=== PATIENT | male | born 1945 | race Caucasian/White ===

== ENCOUNTER → 2017-10-18 | Outpatient (CLI) | payer OTHER, BC | DX: I25.10 Atherosclerotic heart disease of native coronary artery without angina pectoris (principal); I10 Essential (primary) hypertension; E78.5 Hyperlipidemia, unspecified ==

== ENCOUNTER → 2018-05-31 | Outpatient (CLI) | payer OTHER, BC | LOC: BMCIMAGING 11:55 | PROVIDERS: ATTEND Family Medicine | DX: J98.4 Other disorders of lung (principal) ==

== ENCOUNTER → 2018-06-20 | Outpatient (CLI) | payer OTHER, BC | LOC: BMCIMAGING 10:42 | PROVIDERS: ATTEND Internal Medicine | DX: R05 Cough (principal); R63.4 Abnormal weight loss; R53.83 Other fatigue | CPT/HCPCS: G0103 ==

== ENCOUNTER 2018-08-02 14:17 | Observation (INO) | payer OTHER, BC ==
[2018-08-02] MEDS ORDERED: IPRATROPIUM/ALBUTEROL 3 ML DEYVIAL IH ONE (15:14)
[2018-08-02] MEDS ORDERED: ALBUTEROL 3 ML DEYVIAL IH ONE (15:14)
[2018-08-02] MEDS ORDERED: methylPREDNISolone SOD SUCC 125 MG/2 ML VIAL IVP ONE (15:14)
--- NOTE | 2018-08-02 15:15 | EDPHY ---
H & P Time Seen by Provider: 08/02/18 14:54 HPI/ROS: CHIEF COMPLAINT: Persistent cough and shortness of breath HISTORY OF PRESENT ILLNESS: Patient started having symptoms in early May. He was seen in his primary care doctor's office on June 03 and given a course of azithromycin. He was seen again on June 05 and given a steroid and per the notes some injection of antibiotic but they specific medication is not specified on the paperwork the patient brought with him. On June 20 he was again symptomatic in given a 3 day course of Zithromax and a short course of oral prednisone. At 1 of these visits he had a chest x-ray with a spot on it was told he might have pneumonia. After about 6 weeks a cough patient was good for 2 weeks and then for last 2 weeks prior to this visit he started coughing and feeling shortness of breath again. He lost about 4 lb. He is worse lying down in fact can't sleep supine in the bed at all. Symptoms moderate and persistent, worrying the patient and his . Is interested in seeing a headend technician. Denies leg swelling or chest pain or hemoptysis or fever or chills. REVIEW OF SYSTEMS: Eye: no change in vision ENT: no sore throat Cardiac: no chest pain or syncope Pulmonary: HPI Abdomen: no vomiting, diarrhea, abdominal pain Musculoskeletal: No leg swelling Skin: no rash Neuro: no headache Constitutional: no fever : no urinary symptoms A comprehensive 10 point review of systems is otherwise negative aside from elements mentioned in the history of present illness. PAST MEDICAL HISTORY: Includes hypertension hypercholesterolemia Social history: Nonsmoker General Appearance: Alert and conversant, cooperative. Eyes: No scleral icterus. ENT, Mouth: Normal mucous membranes. No angioedema. Respiratory: Bilateral expiratory wheezing and rhonchi, saturation high 80s on room air. Cardiovascular: Regular rate and rhythm. Gastrointestinal: Abdomen is soft and non tender. Neurological: Alert, face symmetric, normal motor and sensory in extremities. Skin: Warm and dry, no rashes. Musculoskeletal: No peripheral edema. No calf tenderness. Psychiatric: Not agitated. Emergency Department course/MDM: Patient has audible bronchospasm and persistent hypoxemia after multiple courses of outpatient therapy. Plan for DuoNeb, albuterol, IV steroids, chest x-ray. Admission hospitalist, consider pulmonary consult. 1600: Labs reviewed, D-dimer less than 0.1 times age. Low pretest likelihood for pulmonary embolism. Smoking Status: Never smoked Constitutional: Initial Vital Signs Temperature (C) 37.2 C 08/02/18 14:25 Heart Rate 85 08/02/18 14:25 Respiratory Rate 18 08/02/18 14:25 Blood Pressure 163/78 H 08/02/18 14:25 O2 Sat (%) 89 L 08/02/18 14:25 O2 Delivery Mode Room Air O2 (L/minute) 2 Allergies/Adverse Reactions: No Known Allergies Allergy (Unverified 05/15/12 15:54) Home Medications: Medication Instructions Recorded Acetaminophen [Tylenol 325mg (*)] 650 mg PO Q6 PRN 08/02/18 Albuterol Sulfate [Albuterol 8.5 gm IH Q6 PRN 08/02/18 Sulfate Hfa] Aspirin EC [Aspirin EC 325 mg (*)] 325 mg PO HS 08/02/18 Atorvastatin Calcium [Lipitor 40 80 mg PO HS 08/02/18 mg (*)] C/E/Zn/Cu/OM3/DHA/EPA/LUT/ZEAX 1 each PO BID 08/02/18 [Preservision Areds 2 Softgel] Cetirizine [ZyrTEC 10 mg (*)] 10 mg PO DAILY PRN 08/02/18 Dutasteride [Avodart 0.5 MG (*)] 0.5 mg PO HS 08/02/18 Losartan/Hctz 50/12.5 [Hyzaar 1 tab PO DAILY 08/02/18 50/12.5MG (*)] Multivitamins [Multivitamin (*)] 1 each PO DAILY 08/02/18 Polyethylene Glycol 3350 [Miralax 17 gm PO DAILY PRN 08/02/18 17 gm (*)] Medical Decision Making - Diagnostics Imaging Results: Imaging Impressions Chest X-Ray 08/02/18 15:14 Impression: Clear lungs. No acute process. Chest x-ray personally interpreted is negative. Imaging: I viewed and interpreted images myself Differential Diagnosis: Differential diagnosis considered for shortness of breath including but not limited to pulmonary infectious process, COPD, asthma, pulmonary embolus and congestive heart failure. Consult/Admit Bed Type: [place] [id number] - Data Points Laboratory Results: Laboratory Results 08/02/18 15:25 08/02/18 15:25 08/02/18 08/02/18 08/02/18 15:28 15:25 15:25 WBC RBC Hgb Hct MCV MCH MCHC RDW Plt Count MPV Neut % (Auto) Lymph % (Auto) [place] % (Auto) Eos % (Auto) Baso % (Auto) Nucleat RBC Rel Count Absolute Neuts (auto) Absolute Lymphs (auto) Absolute Monos (auto) Absolute Eos (auto) Absolute Basos (auto) Absolute Nucleated RBC Immature Gran % Immature Gran # RBC/WBC/PLT Morphology Platelet Estimate D-Dimer 0.69 ug/mLFEU H ug/mLFEU (0.00-0.50) Sodium 133 mEq/L L mEq/L (135-145) Potassium 3.6 mEq/L mEq/L (3.5-5.2) Chloride 97 mEq/L mEq/L (97-110) Carbon Dioxide 26 mEq/l mEq/l (22-31) Anion Gap 10 mEq/L mEq/L (6-14) BUN 23 mg/dL mg/dL (7-23) Creatinine 1.3 mg/dL mg/dL (0.7-1.3) Estimated GFR 54 Glucose 173 mg/dL H mg/dL (70-100) Calcium 9.1 mg/dL mg/dL (8.5-10.4) NT-Pro-B Natriuret Pep 505 pg/mL H pg/mL (0-125) Procalcitonin Pending 08/02/18 15:25 WBC 10.40 10^3/uL H 10^3/uL (3.80-9.50) RBC 5.00 10^6/uL 10^6/uL (4.40-6.38) Hgb 13.7 g/dL g/dL (13.7-17.5) Hct 41.5 % % (40.0-51.0) MCV 83.0 fL fL (81.5-99.8) MCH 27.4 pg L pg (27.9-34.1) MCHC 33.0 g/dL g/dL (32.4-36.7) RDW 14.8 % % (11.5-15.2) Plt Count 153 10^3/uL 10^3/uL (150-400) MPV 10.2 fL fL (8.7-11.7) Neut % (Auto) 90.0 % H % (39.3-74.2) Lymph % (Auto) 3.6 % L % (15.0-45.0) [place] % (Auto) 4.5 % % (4.5-13.0) Eos % (Auto) 1.3 % % (0.6-7.6) Baso % (Auto) 0.2 % L % (0.3-1.7) Nucleat RBC Rel Count 0.0 % % (0.0-0.2) Absolute Neuts (auto) 9.36 10^3/uL H 10^3/uL (1.70-6.50) Absolute Lymphs (auto) 0.37 10^3/uL L 10^3/uL (1.00-3.00) Absolute Monos (auto) 0.47 10^3/uL 10^3/uL (0.30-0.80) Absolute Eos (auto) 0.14 10^3/uL 10^3/uL (0.03-0.40) Absolute Basos (auto) 0.02 10^3/uL 10^3/uL (0.02-0.10) Absolute Nucleated RBC 0.00 10^3/uL 10^3/uL (0-0.01) Immature Gran % 0.4 % % (0.0-1.1) Immature Gran # 0.04 10^3/uL 10^3/uL (0.00-0.10) RBC/WBC/PLT Morphology TNP Platelet Estimate TNP D-Dimer Sodium Potassium Chloride Carbon Dioxide Anion Gap BUN Creatinine Estimated GFR Glucose Calcium NT-Pro-B Natriuret Pep Procalcitonin Medications Given: Discontinued Medications Albuterol (Proventil Neb) 3 ml IH EDNOW ONE Stop: 08/02/18 15:15 Last Admin: 08/02/18 15:58 Dose: 3 ml Albuterol/Ipratropium (Duoneb) 3 ml IH EDNOW ONE Stop: 08/02/18 15:15 Last Admin: 08/02/18 15:58 Dose: 3 ml Methylprednisolone Sodium Succinate (Solu-Medrol) 125 mg IVP EDNOW ONE Stop: 08/02/18 15:15 Last Admin: 08/02/18 15:55 Dose: 125 mg Departure - Departure Disposition: [facility] Acute Clinical Impression: Bronchospasm, acute, Hypoxemia Condition: Good
[2018-08-02 15:38] LABS: PLATELET COUNT 153 10^3/uL (150-400)
[2018-08-02] MEDS ORDERED: ONDANSETRON 4 MG/2 ML VIAL IVP PRN (16:36)
[2018-08-02] MEDS ORDERED: ONDANSETRON DISINTEGRATING 4 MG TAB PO PRN (16:36)
[2018-08-02] MEDS ORDERED: ACETAMINOPHEN 325 MG TAB PO PRN (16:36)
[2018-08-02] MEDS ORDERED: ALBUTEROL 3 ML DEYVIAL IH PRN (16:52)
[2018-08-02] MEDS ORDERED: POLYETHYLENE GLYCOL 3350 17 GM PKT PO PRN (16:56)
--- NOTE | 2018-08-02 16:59 | PDGENHP ---
History and Physical - Chief Complaint cough, SOB - History of Present Illness 72 yo male with h/o htn and hld presents to ED with cough and SOB. He initially developed upper respiratory symptoms in 05/2018 and was treated with Azithromycin and Prednisone. Follow up CXR was done and PCP treated him for possible RLL PNA with another course of Azithromycin and Prednisone. He got better for 2 weeks, but about 4 days ago, cough and wheezing recurred. He says his symptoms are worse lying flat, though he attributes this to difficulty with mucus management. His cough is productive. He gives a h/o seasonal allergies. No h/o asthma or COPD. He is a non-smoker. He has been afebrile. No CP or pleuritic symptoms. He gets a bit SOB related to frequent coughing and wheezing. He states his cough is deep and painful. No sick contacts. In the ED, he received 125 mg IV solumedrol and duonebs followed by albuterol nebs. He feels these treatments have improved his symptoms. History Information - Allergies/Home Medication List Allergies/Adverse Reactions: No Known Allergies Allergy (Unverified 05/15/12 15:54) Home Medications: Acetaminophen [Tylenol 325mg (*)] 650 mg PO Q6 PRN 08/02/18 [Last Taken Unknown] Albuterol Sulfate [Albuterol Sulfate Hfa] 8.5 gm IH Q6 PRN 08/02/18 [Last Taken Unknown] Aspirin EC [Aspirin EC 325 mg (*)] 325 mg PO HS 08/02/18 [Last Taken 08/01/18] Atorvastatin Calcium [Lipitor 40 mg (*)] 80 mg PO HS 08/02/18 [Last Taken ] C/E/Zn/Cu/OM3/DHA/EPA/LUT/ZEAX [Preservision Areds 2 Softgel] 1 each PO BID [Last Taken 08/02/18 09:00] Cetirizine [ZyrTEC 10 mg (*)] 10 mg PO DAILY PRN 08/02/18 [Last Taken Unknown] Dutasteride [Avodart 0.5 MG (*)] 0.5 mg PO HS 08/02/18 [Last Taken 08/01/18] Losartan/Hctz 50/12.5 [Hyzaar 50/12.5MG (*)] 1 tab PO DAILY 08/02/18 [Last Taken 08/02/18] Multivitamins [Multivitamin (*)] 1 each PO DAILY 08/02/18 [Last Taken 08/02/18] Polyethylene Glycol 3350 [Miralax 17 gm (*)] 17 gm PO DAILY PRN 08/02/18 [Last Taken Unknown] I have personally reviewed and updated: family history, medical history, social history, surgical history - Past Medical History hypertension, hyperlipidemia - Surgical History Reports: no pertinent surgical hx - Family History Positive for: non-pertinent - Social History Smoking Status: Never smoked Drug Use: None Additional social history: , at bedside Review of Systems Review of Systems: ROS: 10pt was reviewed & negative except for what was stated in HPI & below Physical Exam Physical Exam: Temp Pulse Resp BP Pulse Ox 37.2 C 77 18 131/64 H 95 08/02/18 14:25 08/02/18 16:01 08/02/18 16:01 08/02/18 16:01 08/02/18 16:01 O2 (L/minute) 2 Constitutional: no apparent distress Eyes: PERRL Ears, Nose, Mouth, Throat: moist mucous membranes Cardiovascular: regular rate and rhythym Respiratory: no respiratory distress, expiratory wheeze Gastrointestinal: normoactive bowel sounds, soft, non-tender abdomen Skin: warm Musculoskeletal: full muscle strength Neurologic: AAOx3 Psychiatric: interacting appropriately Lab Data & Imaging Review 08/02/18 15:25 08/02/18 15:25 WBC 10.40 10^3/uL (3.80-9.50) H 08/02/18 15:25 RBC 5.00 10^6/uL (4.40-6.38) 08/02/18 15:25 Hgb 13.7 g/dL (13.7-17.5) 08/02/18 15:25 Hct 41.5 % (40.0-51.0) 08/02/18 15:25 MCV 83.0 fL (81.5-99.8) 08/02/18 15:25 MCH 27.4 pg (27.9-34.1) L 08/02/18 15:25 MCHC 33.0 g/dL (32.4-36.7) 08/02/18 15:25 RDW 14.8 % (11.5-15.2) 08/02/18 15:25 Plt Count 153 10^3/uL (150-400) 08/02/18 15:25 MPV 10.2 fL (8.7-11.7) 08/02/18 15:25 Neut % (Auto) 90.0 % (39.3-74.2) H 08/02/18 15:25 Lymph % (Auto) 3.6 % (15.0-45.0) L 08/02/18 15:25 [place] % (Auto) 4.5 % (4.5-13.0) 08/02/18 15:25 Eos % (Auto) 1.3 % (0.6-7.6) 08/02/18 15:25 Baso % (Auto) 0.2 % (0.3-1.7) L 08/02/18 15:25 Nucleat RBC Rel Count 0.0 % (0.0-0.2) 08/02/18 15:25 Absolute Neuts (auto) 9.36 10^3/uL (1.70-6.50) H 08/02/18 15:25 Absolute Lymphs (auto) 0.37 10^3/uL (1.00-3.00) L 08/02/18 15:25 Absolute Monos (auto) 0.47 10^3/uL (0.30-0.80) 08/02/18 15:25 Absolute Eos (auto) 0.14 10^3/uL (0.03-0.40) 08/02/18 15:25 Absolute Basos (auto) 0.02 10^3/uL (0.02-0.10) 08/02/18 15:25 Absolute Nucleated RBC 0.00 10^3/uL (0-0.01) 08/02/18 15: Immature Gran % 0.4 % (0.0-1.1) 08/02/18 15: Immature Gran # 0.04 10^3/uL (0.00-0.10) 08/02/18 15:25 RBC/WBC/PLT Morphology TNP 08/02/18 15:25 Platelet Estimate TNP 08/02/18 15:25 D-Dimer 0.69 ug/mLFEU (0.00-0.50) H 08/02/18 15:25 Sodium 133 mEq/L (135-145) L 08/02/18 15:25 Potassium 3.6 mEq/L (3.5-5.2) 08/02/18 15:25 Chloride 97 mEq/L (97-110) 08/02/18 15:25 Carbon Dioxide 26 mEq/l (22-31) 08/02/18 15:25 Anion Gap 10 mEq/L (6-14) 08/02/18 15:25 BUN 23 mg/dL (7-23) 08/02/18 15:25 Creatinine 1.3 mg/dL (0.7-1.3) 08/02/18 15:25 Estimated GFR 54 08/02/18 15:25 Glucose 173 mg/dL (70-100) H 08/02/18 15:25 Calcium 9.1 mg/dL (8.5-10.4) 08/02/18 15:25 NT-Pro-B Natriuret Pep 505 pg/mL (0-125) H 08/02/18 15:25 Visualized and Interpreted Chest x-ray results: Yes Chest X-Ray results: no infiltrate Assessment & Plan Assessment: Hypoxemia - in setting of cough and wheezing. Query viral vs allergic component. He is s/p 2 courses of Azithromycin over past 2 months, symptoms recurred. Age adjusted d dimer neg. Afebrile. CXR personally reviewed/interp , no obvious infiltrate. -send viral PCR -will check bordatella PCR as well as I considered pertussis with his whooping cough type symptoms -duonebs, prn albuterol nebs -zyrtec and prednisone -wean O2 as able -pt has outpt consult with Dr. Robert Delaney this week Hypertension - adequate control. ARB's can cause cough (3% per UTD), though he has been on this for a couple of years -cont HCTZ -hold losartan for now, though seems unlikely this is contributing to above Hyperlipidemia - cont statin Full code Dispo - obs
[2018-08-02] MEDS: FLUTICASONE NASAL 120 SPRAYS/16 GM MDI EACHNARE SCH (17:36)
[2018-08-02] MEDS: CETIRIZINE 10 MG TAB PO SCH (17:36)
[2018-08-02] MEDS ORDERED: ASPIRIN EC 325 MG TAB PO SCH (21:00)
[2018-08-02] MEDS: ATORVASTATIN CALCIUM 40 MG TAB PO SCH ×2 (21:28→21:45)
[2018-08-02] MEDS: DUTASTERIDE 0.5 MG CAP PO SCH ×2 (21:28→21:45)
[2018-08-02] MEDS: IPRATROPIUM/ALBUTEROL 3 ML DEYVIAL IH SCH (22:04)
[2018-08-03] MEDS: IPRATROPIUM/ALBUTEROL 3 ML DEYVIAL IH SCH ×3 (06:01→15:29)
[2018-08-03] MEDS: CETIRIZINE 10 MG TAB PO SCH (08:20)
[2018-08-03] MEDS: FLUTICASONE NASAL 120 SPRAYS/16 GM MDI EACHNARE SCH (08:20)
[2018-08-03] MEDS ORDERED: LOSARTAN/HCTZ 50/12.5 1 TAB PO SCH (09:00)
[2018-08-03] MEDS ORDERED: HYDROCHLOROTHIAZIDE 25 MG TAB PO SCH (09:00)
[2018-08-03] MEDS ORDERED: predniSONE 20 MG TAB PO SCH (09:00)
[2018-08-03 12:15] VITALS: BP 118/61
--- NOTE | 2018-08-03 13:44 | PDDCSUM ---
Discharge Summary Discharge Summary: DISCHARGE DIAGNOSES: * Acute hypoxemic respiratory failure * Reactive airways disease exacerbation * Acute human metapneumovirus infection HOSPITAL COURSE SUMMARY: This patient comes in with his 3rd episode of shortness of breath hypoxemia and coughing during this past season. At this time he is found have no evidence of pneumonia or fever or sepsis. He has human metapneumovirus identified on nasal swab testing. This is presumed to be the cause of his acute episode. He is quite tight and wheezy as he comes in and does have hypoxemia in the 80s on room air. The patient has been treated here with bronchodilators and prednisone and has responded quite nicely. He is not feeling short of breath at rest. There has been no sign of any other complication or acute issues. At this point he is stable for discharge to home. PENDING TEST RESULTS: None MEDICATION CHANGES: Addition of prednisone 20 mg daily, final duration and tapering to be determined by Dr. Jan Delaney in clinic FOLLOW-UP PLAN: He has an appoint with Dr. Jan Delaney in pulmonology clinic in 4 days Greater than 35 minutes bedside and care coordination time today
--- NOTE | 2018-08-03 16:01 | ECHO ---
[email or web address] [address] [address] Main: [phone] Echocardiography Examination Transthoracic Name: AMAN GARZA MR#: [id number] Study Date: 08/03/2018 Study Time: 02:41 PM Date of : 1945 Age: 72 year(s) Height: 182.9 cm (72 in.) Weight: 82.1 kg (181 lb.) BSA: 2.04 m2 Gender: Male Examination: Echo Contrast: Image Quality: Adequate Rhythm: Normal sinus rhythm Heart Rate: 66 bpm BP: 118 mmHg/61 mmHg Indication: cough, Shortness of breath, elevated BNP Procedure Staff Referring Physician: [employer]sembl[employer] Developer Prover: Linda Rod [facility] Reading Physician: Elisabeth Campbell MD Requesting Provider: Ordering Physician: Teena Munoz Indication: cough, Shortness of breath, elevated BNP Measurements Chambers AV/MV Label Value Normal Value Label Value Normal Value LVOT Vmax 0.73 m/s (0.7m/s - 1.1m/s) AV PGmax 10 mmHg LVOTd 2.2 cm (1.9cm - 2.1cm) AV Vmax 1.6 m/s LVDd, 2D 5.6 cm (4.2cm - 5.9cm) APOLINAR (Vmax) 1.7 cm2 LVDs, 2D 4.1 cm (2.1cm - 4cm) MV E Vmax 0.63 m/s IVSd, 2D 0.9 cm (0.6cm - 1.1cm) MV A Vmax 0.8 m/s LVPWd, 2D 0.9 cm (0.6cm - 1cm) MV E/A 0.79 LVEF, BP 55 % (55% - 70%) MV E/E' lateral 6.3 LVEF, 2D 51 % (54% - 74%) MV E/E' septal 12.1 (0.45 - 1.25) RVDd, 2D 3.8 cm (1.9cm - 3.8cm) MV DT 134 ms TAPSE 3.3 cm MV E' septal 0.05 m/s LA Volume, BP 62 ml (18ml - 58ml) MV E' lateral 0.1 m/s LADs, 2D 3.3 cm (3cm - 4cm) MV E/E' mean 8.4 LAESV index, BP 30.4 ml/m2 MV E' mean 0.08 m/s RA Area 22 cm2 TV/PV Additional Vessels Label Value Normal Value Label Value Normal Value RA Pressure 10 mmHg AoAsc 3.1 cm RVSP 39 mmHg AoRoot, 2D 3.4 cm (1.4cm - 2.6cm) TR Pmax 29 mmHg TR Vmax 2.67 m/s Patient: AMAN GARZA Study Date: 08/03/2018 Page 1 of 3 02:41 PM PV PGmax 5 mmHg PV Vmax, Caliper 1.1 m/s (0.6m/s - 0.9m/s) Conclusions 1. The left ventricle is normal in size. Normal wall thickness. Normal systolic function with an ejection fraction of 55%. No regional wall motion abnormalities. Normal diastolic function. 2. The right ventricle is normal in size and systolic function. 3. The right atrium is [id number] dilated 4. Mild mitral regurgitation. 5. Mild tricuspid regurgitation with estimated RV systolic pressure of 39 mm of mercury. 6. No pericardial effusion. 7. No previous echocardiogram Findings Left Ventricle: Left ventricle is normal in size. Normal global systolic left ventricular function. EF evaluated by EF (single plane Bruno's). The ejection fraction, measured by Simpsons method, is 55 %. EF range is estimated at 55 % - 60 %. Left ventricle wall thickness is normal. There are no regional wall motion abnormalities. Left ventricular diastolic function parameters are normal. Right Ventricle: Normal size right ventricle. Right ventricular systolic function is normal. Left Atrium: The left atrium is normal in size. Right Atrium: The right atrium is mildly to moderately dilated. Mitral Valve: Mitral valve appears structurally normal. Mild mitral regurgitation. No mitral valve stenosis. There is mild mitral thickening. Aortic Valve: The aortic valve is structurally normal and trileaflet. No aortic valve regurgitation. There is no aortic stenosis. Tricuspid Valve: Tricuspid valve leaflets are structurally normal. Mild tricuspid regurgitation. Right Ventricular systolic pressure is measured at 39 mmHg. Pulmonary artery pressure is mildly increased. Pulmonic Valve: Pulmonic valve is poorly visualized. No significant pulmonic valve regurgitation is evident. Aorta: The aortic root size in 2D measures 3.4 cm. The aortic root exhibits normal size. The ascending aorta measures 3.1 cm. Ascending aorta is normal in size. Aorta Measurements AoRoot, 2D is 3.4 cm. IVC: The inferior vena cava is mildly dilated. The respirophasic change in diameter is more than 50%. Pericardium: No pericardial effusion. Exam Details Procedure Ordered: Echo Procedure Status: Routine study Image Quality: Adequate Facility Location: Cardiac Echo 1 Patient: AMAN GARZA Study Date: 08/03/2018 Page 2 of 3 02:41 PM (No Signature Object) Patient: AMAN GARZA Study Date: 08/03/2018 Page 3 of 3 02:41 PM [id number]
[2018-08-06 07:06] LABS: B.PARAPERTUSSIS PCR Negative; B.PERTUSSIS PCR Negative
== END 2018-08-03 16:20 | disposition home or self-care (01) ==
LOC: F3E 17:02
PROVIDERS: ADMIT Hospitalist; ATTEND Internal Medicine
DX: J96.01 Acute respiratory failure with hypoxia (principal); J45.901 Unspecified asthma with (acute) exacerbation; B97.81 Human metapneumovirus as the cause of diseases classified elsewhere; I10 Essential (primary) hypertension; E78.00 Pure hypercholesterolemia, unspecified
CPT/HCPCS: 71046; 93306; G0378; J2930; J7512; J7613; 87798-90; 96374